=== PATIENT | male | born 1985 | race African-American/Black ===

== ENCOUNTER 2020-01-22 16:53 | Emergency (ER) | payer OTHER ==
[~2020-01-22] VITALS: Ht 182.9 cm; Wt 91.4 kg
[2020-01-22] MEDS ORDERED: [UNRECOGNIZED DRUG - OTHER] PO (17:24)
[2020-01-22] MEDS ORDERED: KETOROLAC 30 MG/ML 1ML VIAL IV ONE (17:30)
[2020-01-22] MEDS ORDERED: NS 1,000 ML IV ONE (17:30)
[2020-01-22 17:57] LABS: BASO % 0.3 % (0.0-1.0); EOS % 0.5 % (0.0-3.0); HEMATOCRIT 46.6 % (42.0-52.0); HEMOGLOBIN 15.2 g/dl (13.5-17.5); LYMPH # 1.2 10^3/uL (1.5-5.0); LYMPH % 13.4 % (24.0-44.0); MEAN CORPUSCULAR HEMOGLOBIN 25.5 pg (27.0-33.0); MEAN CORPUSCULAR HGB CONC 32.6 g/dl (32.0-36.5); MEAN CORPUSCULAR VOLUME 78.3 fl (80.0-96.0); MONO # 0.5 10^3/uL (0.0-0.8); MONO % 5.3 % (0.0-5.0); NEUTROPHILS % 80.2 % (36.0-66.0); PLATELET COUNT, AUTOMATED 291 10^3/uL (150-450); RED BLOOD COUNT 5.95 10^6/uL (4.30-6.10); WHITE BLOOD COUNT 8.7 10^3/uL (4.0-10.0)
[2020-01-22 18:21] LABS: ALBUMIN 3.9 GM/DL (3.2-5.2); ALT/SGPT 26 U/L (12-78); BILIRUBIN,DIRECT 0.1 MG/DL (0.0-0.2); BILIRUBIN,TOTAL 0.3 MG/DL (0.2-1.0); BLOOD UREA NITROGEN 14 MG/DL (7-18); CALCIUM LEVEL 9.5 MG/DL (8.5-10.1); CARBON DIOXIDE LEVEL 30 MEQ/L (21-32); CHLORIDE LEVEL 107 MEQ/L (98-107); CREATININE FOR GFR 1.58 MG/DL (0.70-1.30); GLOMERULAR FILTRATION RATE > 60.0 (>60); GLUCOSE, FASTING 113 MG/DL (70-100); LIPASE 54 U/L (73-393); POTASSIUM SERUM 4.2 MEQ/L (3.5-5.1); SODIUM LEVEL 142 MEQ/L (136-145); TOTAL PROTEIN 7.4 GM/DL (6.4-8.2)
--- NOTE | 2020-01-22 18:22 | REPVR ---
PROCEDURE INFORMATION: Exam: CT Abdomen And Pelvis Without Contrast Exam date and time: 01/22/2020 5:52 PM Age: 34 years old Clinical indication: Abdominal pain; Flank; Left; Additional info: L flank pain TECHNIQUE: Imaging protocol: Computed tomography of the abdomen and pelvis without contrast. Radiation optimization: All CT scans at this facility use at least one of these dose optimization techniques: automated exposure control; mA and/or kV adjustment per patient size (includes targeted exams where dose is matched to clinical indication); or iterative reconstruction. COMPARISON: No relevant prior studies available. FINDINGS: Lungs: No suspicious mass or airspace process in the visualized lung bases. Liver: Liver is unremarkable aside from a 9 mm the simple fluid density cyst on image 32. Noncontrast spleen shows no obvious focal deformity. Gallbladder and bile ducts: Gallbladder is present and shows no evidence of gallstone. Pancreas: Noncontrast pancreas shows no obvious mass or adjacent fluid. Spleen: See "Liver" finding. Adrenal glands: Adrenal glands are normal in appearance. Kidneys and ureters: Kidneys show no stone. No ureter stone. Mild left renal collecting system and proximal ureter prominence Stomach and bowel: No evidence of small bowel obstruction. No evidence of acute diverticulitis. Appendix: Normal caliber appendix is identified, with no adjacent inflammation. Intraperitoneal space: No pneumoperitoneum. Vasculature: No aortic aneurysm. Lymph nodes: No enlarged lymph nodes. Urinary bladder: Urinary bladder appears normal aside from a dependent bladder lumen stone. Reproductive: No overt enlargement of the prostate gland. Bones/joints: Bony structures show no acute fracture or destructive process. Soft tissues: Fat containing umbilical hernia is present. No concerning focal abnormality of the extra-abdominal and pelvic soft tissues. Other findings: Limited evaluation without enteric or IV contrast. IMPRESSION: No evidence of renal stone . A punctate stone within the lumen of the bladder may have recently passed from the left ureter, given the mild left collecting system dilatation and periureteric stranding.. Electronically signed by: Joss Tadeo On 01/22/2020 18:21:40 PM
--- NOTE | 2020-01-22 19:05 | REPVR ---
PROCEDURE INFORMATION: Exam: US Scrotum Exam date and time: 01/22/2020 6:48 PM Age: 34 years old Clinical indication: Flank pain; Additional info: Testicular pain R/O torsion TECHNIQUE: Imaging protocol: Real-time ultrasound of the scrotum and contents with color Doppler and image documentation. COMPARISON: No relevant prior studies available. FINDINGS: Right testicle measures 4.0 x 2.2 x 2.6 cm in size. Right testicle appears homogeneous with no focal mass. Normal Doppler flow is present within the right testicle. Left testicle measures 4.4 x 1.7 x 2.3 cm in size. Left testicle appears homogeneous with no focal mass. Incidental microcalcifications. Normal Doppler flow is present within the left testicle. Right and left epididymis are symmetric and have normal Doppler flow. Resistive index 0.72 on the right and 0.55 on the left Physiologic fluid volume within the scrotal sac. No bowel-containing hernia sac within the scrotum. IMPRESSION: Unremarkable scrotal ultrasound with Doppler. Electronically signed by: Joss Tadeo On 01/22/2020 19:01:37 PM
[2020-01-22 20:56] VITALS: BP 126/67
== END 2020-01-22 21:14 | disposition home or self-care (01) ==
LOC: M ED 16:53 → EDBD 16:53 → M ED 21:14
DX: N20.0 Calculus of kidney (principal)
CPT/HCPCS: 36415; 74176; 76870; 80048; 80076; 81001; 83690; 85025; 96361; 96374; 99284; J1885